=== PATIENT | female | born 1975 | race Asian ===

== ENCOUNTER 2016-07-20 03:06 | Emergency (ER) | payer BC ==
[~2016-07-20] VITALS: Ht 149.9 cm; Wt 48.2 kg
[2016-07-20 06:02] VITALS: BP 111/74
== END 2016-07-20 06:04 | disposition home or self-care (01) ==
LOC: ED 06:00
DX: R20.9 Unspecified disturbances of skin sensation (principal); R04.0 Epistaxis
CPT/HCPCS: 72050; 99284

== ENCOUNTER → 2016-07-27 | Outpatient (CLI) | payer BC | END | disposition home or self-care (01) | LOC: CFH 13:05 | PROVIDERS: ATTEND Physician Assistant | DX: N63 Unspecified lump in breast (principal) | CPT/HCPCS: 76641; G0204 ==